=== PATIENT | female | born 1955 | race Caucasian/White ===

== ENCOUNTER 2018-03-10 08:21 | Inpatient (IN) | payer OTHER ==
[~2018-03-10] VITALS: Ht 152.4 cm; Wt 39.0 kg
[~2018-03-10 08:21] MED LIST: NAPROXEN500 MG PO; ORENCIA50 MG/0.4; SYNTHROID150 MCG PO
[2018-03-15] MEDS ORDERED: LEVAQUIN500 MG PO (07:09)
[2018-03-15] MEDS ORDERED: XARELTO10 MG PO (07:09)
[2018-03-15] MEDS ORDERED: OXYC1TAB9 PO (07:09)
[2018-03-15] MEDS ORDERED: INTEGRA PLUS C1 EACH PO (07:09)
== END 2018-03-15 16:20 | DRG 470 ==
LOC: O/R 03-13 06:00 → SURH 03-13 06:00
PROVIDERS: Orthopaedic Surgery Sports Medicine
PROC: 0SRD0J9 Replacement of Left Knee Joint with Synthetic Substitute, Cemented, Open Approach (ICD-10-PCS; principal; 2018-03-13 17:30)
DX: M17.12 Unilateral primary osteoarthritis, left knee (principal); E03.8 Other specified hypothyroidism

== ENCOUNTER 2018-12-18 12:45 | Inpatient (IN) | payer OTHER ==
[~2018-12-18] VITALS: Ht 152.4 cm; Wt 40.4 kg
[~2018-12-18 12:45] MED LIST changes: +INTEGRA PLUS C1 EACH PO; +LEVAQUIN500 MG PO; +OXYC1TAB9 PO; +XARELTO10 MG PO
[2018-12-18] MEDS ORDERED: SYNTHROID175 MCG PO (13:10)
[2018-12-18] MEDS ORDERED: NAPR500T14 PO (13:10)
[2018-12-18] MEDS ORDERED: PANADOL EXTRA500 MG PO (13:11)
[2018-12-18] MEDS ORDERED: SINGULAIR10 MG PO (13:11)
[2018-12-28] MEDS ORDERED: INTEGRA PLUS C1 EACH PO (07:12)
[2018-12-28] MEDS ORDERED: XARELTO10 MG PO (07:12)
[2018-12-28] MEDS ORDERED: OXYC1TAB9 PO (07:12)
== END 2018-12-28 14:31 | DRG 470 ==
LOC: O/R 12-25 05:05 → SURH 12-25 05:05 → SURG 12-25 07:00 → SURH 12-25 10:29 → SURG 12-25 12:45 → SURH 12-28 14:31
PROVIDERS: ADMIT Orthopaedic Surgery Sports Medicine
PROC: 0SRC0J9 Replacement of Right Knee Joint with Synthetic Substitute, Cemented, Open Approach (ICD-10-PCS; principal; 2018-12-25 07:00)
DX: M17.11 Unilateral primary osteoarthritis, right knee (principal); M06.861 Other specified rheumatoid arthritis, right knee; E03.8 Other specified hypothyroidism